=== PATIENT | female | born 1990 ===

== ENCOUNTER 2020-05-14 08:42 | Inpatient (IN) | payer BC, OTHER ==
[2020-05-14 10:09] VITALS: BMI 32.9
[2020-05-14 10:17] LABS: BASO % 0.2 % (0-2.0); EOS % 2.8 % (0-4.5); HEMATOCRIT 34.8 % (32.4-45.2); HEMOGLOBIN 11.9 GM/dL (10.7-15.3); LYMPH % 15.6 % (8-40); MCH 30.5 pg (25.7-33.7); MCHC 34.1 g/dl (32.0-36.0); MEAN CELL VOLUME 89.2 fl (80-96); MEAN PLT VOLUME 8.2 fl (7.5-11.1); MONO % 7.4 % (3.8-10.2); PLATELET COUNT 235 K/MM3 (134-434); RDW 13.8 % (11.6-15.6); WHITE BLOOD COUNT 8.2 K/mm3 (4.0-10.0)
[2020-05-14 10:32] LABS: INR 0.93 (0.83-1.09)
[2020-05-14 10:35] LABS: ACTIVATED PTT 27.3 SECONDS (25.2-36.5)
[2020-05-14 10:37] LABS: CALCIUM 8.5 mg/dL (8.5-10.1); CREATININE 0.5 mg/dL (0.55-1.3)
--- NOTE | 2020-05-14 10:57 | HP ---
Past Medical History - Primary Care Physician PCP:: Tata Woodruff - Admission Chief Complaint: 29 yo EDC 05/22/2020 EGA 38.6 weeks scheduled for RENETTA due to LGA, aging placenta. Pt c/o UC, evaluated 4-5 cm,oblique - transverse (back up), bulging membranes. History Source: Patient Limitations to Obtaining History: No Limitations - Past Medical History ...: 2 ...Para: 1 ...Term: 1 ...: 0 ...Spon : 0 ...Induced : 0 ...Living Children: 1 ...Multiple Gestation: 0 ...LMP: 08/16/19 ... Weeks Gestation by Dates: 38.6 ...EDC by Dates: 05/22/20 ...EDC by Sono: 05/22/20 - Past Surgical History Past Surgical History: Yes: None Hx Myomectomy: No Hx Transabdominal Cerclage: No - Smoking History Smoking history: Never smoked Have you smoked in the past 12 months: No - Alcohol/Substance Use Hx Alcohol Use: No History of Substance Use: reports: None - Social History Usual Living Arrangement: Yes: With Spouse History of Recent Travel: No Home Medications - Allergies Allergies/Adverse Reactions: Allergies Allergy/AdvReac Type Severity Reaction Status Date / Time No Known Allergies Allergy Verified 05/14/20 10:09 - Home Medications Home Medications: Ambulatory Orders Pnv No.95/Ferrous Fum/Folic AC [ Vitamin Tablet] 1 each PO DAILY 05/07/20 Family Medical History Family Hx Cardiac Disorders: Mother Family Hx Diabetes: Mother Review of Systems - Review of Systems Constitutional: reports: No Symptoms Eyes: reports: No Symptoms HENT: reports: No Symptoms Neck: reports: No Symptoms Cardiovascular: reports: No Symptoms Respiratory: reports: No Symptoms Gastrointestinal: reports: No Symptoms Genitourinary: reports: Pain Breasts: reports: No Symptoms Reported Musculoskeletal: reports: No Symptoms Integumentary: reports: No Symptoms Neurological: reports: No Symptoms Endocrine: reports: No Symptoms Hematology/Lymphatic: reports: No Symptoms Psychiatric: reports: No Symptoms Physical Exam - Maternity Vital Signs: Vital Signs Temperature 98.3 F 05/14/20 08:42 Pulse Rate 96 H 05/14/20 08:42 Respiratory Rate 18 05/14/20 08:42 Blood Pressure 132/70 05/14/20 08:42 O2 Sat by Pulse Oximetry (%) Constitutional: Yes: Well Nourished, No Distress Eyes: Yes: WNL HENT: Yes: WNL Neck: Yes: WNL Cardiovascular: Yes: WNL Breast(s): Yes: WNL - Abdominal Exam/OB Fundal Height: 42 Number of Fetuses: Single Presentation: Vertex Contractions: Yes Regularity: Regular Intensity: Mild/Mod Monitor Mode: External Heart Rate (range): 140 Heart Rate Location: [facility] Category: I Accelerations: Uniform Decelerations: None - Vaginal Exam/OB Vaginal Bleeding: No Dilatation (cm): 4-5 cm Effacement (%): 100 Amniotic Membrane Status: Bulging Presentation: Transverse/Shoulder - Physical Exam Musculoskeletal: Yes: WNL Extremities: Yes: WNL Edema: No Integumentary: Yes: WNL Deep Tendon Reflex Grade: Normal +2 ...Motor Strength: WNL Psychiatric: Yes: WNL - Labs Lab Results: CBC, BMP 05/14/20 09:25 05/14/20 09:25 Hemorrhage Risk Assessment - Risk Factors Medium Risk Factors: Yes: EFW greater than 4000g Risk Score: 1 Risk Level: Medium Risk Problem List - Problems (1) with 38 completed weeks gestation Code(s): Z3A.38 - 38 WEEKS GESTATION OF (2) LGA (large for gestational age) fetus Code(s): ITY6096 - (3) Transverse lie on examination Code(s): O32.2XX0 - MATERNAL CARE FOR TRANSVERSE AND OBLIQUE LIE, UNSP (4) GBS carrier Code(s): Z22.330 - CARRIER OF GROUP B STREPTOCOCCUS Assessment/Plan Admit to NPO Cesarian delivery - risk, benefits, alternatives of c/s discussed at [facility] with pt and her ; pt verbalized understanding and signed the consent form. All question answered.
[2020-05-14] MEDS ORDERED: CITRIC ACID/SODIUM CITRATE 30 ML UNIT-DOSE CUP PO ONE (11:09)
[2020-05-14] MEDS ORDERED: ELECTROLYTE-148 SOLN 1,000 ML IV SCH (11:15)
[2020-05-14] MEDS ORDERED: OXYTOCIN 20 UNITS in 0.9% NS 20 UNIT/1,000 ML INFUS.BAG IV ONE ×2 (11:21→14:24)
[2020-05-14] MEDS ORDERED: ePHEDrine SULFATE 50 MG/1 ML AMPULE ONE (11:51)
[2020-05-14] MEDS ORDERED: morphine SULFATE/PF 0.5 MG/ML (2cc Syringe - QUVA) ONE (12:49)
[2020-05-14] MEDS ORDERED: ceFAZolin SODIUM 1 GM VIAL ONE (13:06)
--- NOTE | 2020-05-14 14:08 | OP ---
Operative Note - Note: Operative Date: 05/14/20 Pre-Operative Diagnosis: 29 yo @ 38.6 weeks Oblique lie LGA Operation: Primary LTCS via pfannenstiel Incision Findings: Uterus, ovaries wnl; fallopian tubes with filmy scar tissue Baby boy born wt 9.8 lbs, cord gases and blood collected. 8/9 Placenta and membranes complete Post-Operative Diagnosis: Same as Pre-op Surgeon: Tata Woodruff Lace Weaver: Rob Villa Anesthesiologist/REFRIGERATION PLANT OPERATOR: Henna Eason MD Anesthesia: Spinal Specimens Removed: cord gases and blood Estimated Blood Loss (mls): 800 Fluid Volume Replaced (mls): 2,000 Operative Report Dictated: No
[2020-05-14] MEDS ORDERED: METHYLERGONOVINE MALEATE 0.2 MG/1 ML AMP IM PRN (14:09)
[2020-05-14] MEDS ORDERED: ONDANSETRON 4 MG/2 ML VIAL IVPUSH PRN (14:15)
[2020-05-14] MEDS ORDERED: morphine SULFATE/PF 0.5 MG/ML (2cc Syringe - QUVA) EP ONE (14:15)
[2020-05-14] MEDS: OXYTOCIN 20 UNITS in 0.9% NS 20 UNIT/1,000 ML INFUS.BAG IV SCH ×2 (14:25→22:53)
[2020-05-14] MEDS: ACETAMINOPHEN 1000 MG/100 ML VIAL (NON FORMULARY) IVPB PRN ×2 (16:48→22:51)
[2020-05-14] MEDS: CEFAZOLIN 1 GM/D5W 1 GM/50 ML BAG IVPB SCH (17:39)
[2020-05-15] MEDS: CEFAZOLIN 1 GM/D5W 1 GM/50 ML BAG IVPB SCH ×2 (01:45→10:00)
[2020-05-15 08:49] LABS: BASO % 0.2 % (0-2.0); EOS % 1.7 % (0-4.5); HEMOGLOBIN 12.5 GM/dL (10.7-15.3); LYMPH % 6.4 % (8-40); MCHC 33.7 g/dl (32.0-36.0); MEAN PLT VOLUME 8.2 fl (7.5-11.1); MONO % 7.6 % (3.8-10.2); NEUT % 84.1 % (42.8-82.8); PLATELET COUNT 225 K/MM3 (134-434); RBC 4.16 M/mm3 (3.60-5.2); RDW 13.6 % (11.6-15.6); WHITE BLOOD COUNT 13.9 K/mm3 (4.0-10.0)
[2020-05-15] MEDS: ACETAMINOPHEN 1000 MG/100 ML VIAL (NON FORMULARY) IVPB PRN (08:53)
[2020-05-15] MEDS: IBUPROFEN 600 MG TABLET (FP) PO PRN (12:49)
--- NOTE | 2020-05-15 12:57 | PN ---
Progress Note (short form) - Note Progress Note: Post op day#1.S/P C section under spinal with Duramorph uneventful.Patient stable and c/o some pain for which she is on medication.No any anesthesia related problem.Patient DC from the anesthesia care.
[2020-05-15] MEDS ORDERED: BISACODYL 10 MG SUPP.RECT RC PRN (14:09)
[2020-05-15] MEDS ORDERED: oxyCODONE HCL 5 MG TABLET PO PRN (14:50)
--- NOTE | 2020-05-15 17:02 | PN ---
Post Progress Note - Subjective Subjective: Pt happy c/o painful uterine cramps Post Day: 1 Type of Delivery: Primary C/S Vital Signs: Vital Signs Temperature 98.7 F 05/15/20 08:20 Pulse Rate 85 05/15/20 08:20 Respiratory Rate 18 05/15/20 13:00 Blood Pressure 128/72 05/15/20 08:20 O2 Sat by Pulse Oximetry (%) 98 05/14/20 21:00 Breast Exam: Yes: Soft Uterus: Yes: Fundus Firm, Fundus below umbilicus Incision: Yes: Dressing dry and intact Abdomen/GI: Yes: Abdomen soft, Tender, Tolerating PO Lochia: Yes: Rubra Lochia, amount: Small Extremities: Yes: Calves non-tender Activity: Ambulating - Labs Labs: CBC WBC 13.9 K/mm3 (4.0-10.0) H 05/15/20 08:10 RBC 4.16 M/mm3 (3.60-5.2) 05/15/20 08:10 Hgb 12.5 GM/dL (10.7-15.3) 05/15/20 08:10 Hct 37.0 % (32.4-45.2) 05/15/20 08:10 MCV 89.0 fl (80-96) 05/15/20 08:10 MCH 30.0 pg (25.7-33.7) 05/15/20 08:10 MCHC 33.7 g/dl (32.0-36.0) 05/15/20 08:10 RDW 13.6 % (11.6-15.6) 05/15/20 08:10 Plt Count 225 K/MM3 (134-434) 05/15/20 08:10 MPV 8.2 fl (7.5-11.1) 05/15/20 08:10 Absolute Neuts (auto) 11.7 K/mm3 (1.5-8.0) H 05/15/20 08:10 Neutrophils % 84.1 % (42.8-82.8) H 05/15/20 08:10 Lymphocytes % 6.4 % (8-40) L D 05/15/20 08:10 Monocytes % 7.6 % (3.8-10.2) 05/15/20 08:10 Eosinophils % 1.7 % (0-4.5) 05/15/20 08:10 Basophils % 0.2 % (0-2.0) 05/15/20 08:10 Nucleated RBC % 0 % (0-0) 05/15/20 08:10 Problem List - Problems (1) with 38 completed weeks gestation Code(s): Z3A.38 - 38 WEEKS GESTATION OF (2) LGA (large for gestational age) fetus Code(s): RIZ1936 - (3) Transverse lie on examination Code(s): O32.2XX0 - MATERNAL CARE FOR TRANSVERSE AND OBLIQUE LIE, UNSP (4) GBS carrier Code(s): Z22.330 - CARRIER OF GROUP B STREPTOCOCCUS Assessment/Plan Admit to LD NPO Cesarian delivery - risk, benefits, alternatives of c/s discussed at [facility] with pt and her ; pt verbalized understanding and signed the consent form. All question answered. A/P ambulate Consent form for circumcision
[2020-05-16] MEDS: SIMETHICONE 80 MG TAB.CHEW (FP) PO PRN ×2 (03:25→14:09)
[2020-05-16] MEDS: IBUPROFEN 600 MG TABLET (FP) PO PRN ×2 (03:25→14:41)
[2020-05-16 14:23] VITALS: BP 116/66; PULSE 83; TEMP 99
--- NOTE | 2020-05-16 18:01 | DS ---
Physical Exam-CUT PRESS OPERATOR Vital Signs: Vital Signs Temperature 99.0 F 05/16/20 10:00 Pulse Rate 83 05/16/20 10:00 Respiratory Rate 20 05/16/20 10:00 Blood Pressure 116/66 05/16/20 10:00 O2 Sat by Pulse Oximetry (%) 98 05/14/20 21:00 Constitutional: Yes: Well Nourished Eyes: Yes: WNL HENT: Yes: WNL Neck: Yes: WNL Cardiovascular: Yes: WNL Respiratory: Yes: WNL Gastrointestinal: Yes: WNL ...Rectal Exam: Yes: WNL, Deferred Renal/: Yes: WNL External Genitalia: Yes: Normal ....Post : Yes: Uterus firm, Uterus tender, Slight lochia rubra Breast(s): Yes: WNL Musculoskeletal: Yes: WNL Extremities: Yes: WNL Edema: No Integumentary: Yes: WNL Wound/Incision: Yes: Clean/Dry, Well Approximated, Sutures Intact Neurological: Yes: WNL ...Motor Strength: WNL Psychiatric: Yes: WNL (Pt underwent primary c/s due to oblique lie in labor; post op pt did well; ambulating; + flatus, + BM Incision c/d/i Ext - DVT) Labs: CBC, BMP 05/15/20 08:10 05/14/20 09:25 Delivery - Delivery Section: Primary Type of Anesthesia: Spinal Episiotomy/Laceration: None EBL (cc): 800 Delivery, Single - Stages of Labor Date of Delivery: 05/14/20 Time of Delivery: 13:18 Time Placenta Delivered: 13:19 Placenta: Yes: Spontaneous - Condition of Infant Label Paster/Business Account Leader Present: Yes Name: Mukund Russell Infant Gender: Male Weight: 4.309 kg Position: Left Total Hours ROM (Hrs/Mins): 2min - 1 Minute Total Score: 8 5 Minutes Total Score: 9 - [place] Feeding Plan Initial Plan: Exclusive throughout hospitalization Discharge Summary Problems reviewed: Yes Reason For Visit: INDUCTION OF LABOR Current Active Problems GBS carrier (Acute) LGA (large for gestational age) fetus (Acute) with 38 completed weeks gestation (Acute) Transverse lie on examination (Acute) Hospital Course: good Plan of Treatment: May go home f/u in 1 wk for wound check Encourage Pain meds - motrin 600mg prn Condition: Good - Instructions Diet, Activity, Other Instructions: regular pelvic rest Disposition: HOME - Home Medications Comprehensive Discharge Medication List: Ambulatory Orders Pnv No.95/Ferrous Fum/Folic AC [ Vitamin Tablet] 1 each PO DAILY 05/07/20
--- NOTE | 2020-05-17 16:33 | PATH ---
Surgical Pathology Report Patient Name: ZHENG BEARDEN Med. Rec. #: [id number] /Age/Gender: 1990 (Age: 29) / F Account: [id number] Location: [facility] OBS/PRODUCT MANAGER E COMMERCE Taken: 05/14/2020 Received: 05/15/2020 Reported: 05/17/2020 Physicians: Tata Woodruff M.D. Specimen(s) Received PLACENTA Clinical History , 38.6 weeks, oblique/transverse lie, large for gestational age x1 01/2017 Final Diagnosis PLACENTA: THIRD TRIMESTER PLACENTA WITH FOCAL PERIVILLOUS FIBRIN DEPOSITION. TRIVASCULAR CORD. MEMBRANES WITH NO DIAGNOSTIC ABNORMALITIES. Electronically Signed Gen Christiansen M.D. Gross Description The specimen is received fresh labeled placenta and is a 601 gram, 19.5 x 18.0 x 2.8 cm. placenta with attached membranes and umbilical cord. The attached membranes are muñoz, translucent with focal opacities and insert marginally. The umbilical cord measures seen cm. in length and averages 1.3 cm. in diameter. The cord inserts centrally. No true knots or strictures are identified. Cut surface of the umbilical cord reveals 3 vessels. The surface is snell-blue with minimal fibrin deposition and appropriate caliber vessels. The maternal surface is red-brown with focal defects. Sectioning reveals red-brown, spongy parenchyma. No lesions are identified. [employer] Mill Mixer sections are submitted in three cassettes as follows: 1- membrane rolls and umbilical cord; 2-3- full thickness sections of placenta. /05/16/2020 [facility]/05/16/2020
--- NOTE | 2020-05-23 12:48 | OP ---
DATE OF OPERATION: 05/14/2020 PREOPERATIVE DIAGNOSIS: A 29-year-old 2, para 1 at 39 weeks, oblique lie, large for gestational age. POSTOPERATIVE DIAGNOSIS: A 29-year-old 2, para 1 at 39 weeks, oblique lie, large for gestational age. PROCEDURE: Primary low transverse section via Pfannenstiel incision. SURGEON: Tata Blanco MD MANAGER MARKETING SALES: . ANESTHESIA: Spinal. ANESTHESIOLOGIST: MIKHAIL Phillips COMPLICATION: None. ESTIMATED BLOOD LOSS: 800 mL. FLUID: Lactated Ringer's 1500 mL. URINE OUTPUT: At the end of the procedure 150 clear urine. INDICATION: A 29-year-old G2, para 1 at 39 weeks, failed induction, oblique lie, suspected LGA. FINDINGS: A baby boy born, 9, 9; weight 9 pounds, 8 ounces. Normal uterus, tubes and ovaries. PROCEDURE: The patient was taken to the operating room where spinal anesthesia was administered without complication. Patient was then prepped and draped in the usual sterile fashion in dorsal supine position with a leftward tilt. A Pfannenstiel skin incision was made with a scalpel and carried through to the underlying layers of fascia with the Bovie. The fascia was incised in the midline and the incision extended laterally with Ny scissors. The superior and inferior aspect of fascial incision was grasped with Soraya clamps, elevated and the rectus muscles visualized. The rectus muscles dissected off bluntly. They were in the midline. Peritoneum visualized, tented up, and entered sharply with Metzenbaum scissors. The peritoneal incision was then extended superiorly and inferiorly with good visualization of the bladder. The bladder blade was inserted. The vesicouterine peritoneum identified, grasped with pickups and entered sharply with Metzenbaum scissors. This incision was then extended laterally and the bladder flap created digitally. The bladder blade was then reinserted, the lower uterine segment incised in transverse fashion with a scalpel. The uterine incision was then extended laterally with bandage scissors. The bladder blade was removed and the infant's head delivered atraumatically. The nose and mouth were suctioned, the cord clamped and cut. The was handed off to the waiting photographic equipment technician. Cord gases and blood collected. The placenta was then removed manually. The uterine incision was repaired with 1-0 chromic in a running stitch, locked fashion. A second layer of the same suture was used to obtain hemostasis. The bladder flap was repaired with 2-0 chromic in a running stitch and the uterus returned to the abdomen. The gutters were clear of all clots and the peritoneum closed with 2-0 chromic. The fascia was reapproximated with 0 Vicryl in a running fashion and the skin was closed with 3-0 Vicryl in subcuticular fashion. The patient tolerated the procedure well. Sponge, lap, needle counts were correct x2. The patient was taken to recovery room in stable condition. TATA BLANCO MD RP/[id number]
== END 2020-05-16 18:35 | disposition home or self-care (01) | DRG 788 ==
LOC: JLDR 08:42 → J3W 15:14
PROVIDERS: ADMIT Obstetrics & Gynecology; ATTEND Obstetrics & Gynecology
PROC: 10D00Z1 Extraction of Products of Conception, Low, Open Approach (ICD-10-PCS; principal; 2020-05-14)
DX: O32.2XX0 Maternal care for transverse and oblique lie, not applicable or unspecified (principal); O36.63X0 Maternal care for excessive fetal growth, third trimester, not applicable or unspecified; O61.0 Failed medical induction of labor; Z22.330 Carrier of Group B streptococcus; Z3A.38 38 weeks gestation of pregnancy; Z37.0 Single live birth
CPT/HCPCS: 36415; 36600; 80048; 82803; 85025; 85610; 85730; 86780; 86850; 86900; 86901; 87389; 88307-TC; J0131; U0003